=== PATIENT | female | born 1995 | race Hispanic/Latino ===

== ENCOUNTER 2021-05-28 10:08 | Inpatient (IN) | payer BC ==
[2021-06-01] MEDS ORDERED: Bupivacaine 0.25% HCL 30 ML VIAL ONE (08:00)
[2021-06-01 22:12] VITALS: BMI 32.0
[2021-06-01] MEDS ORDERED: Carboprost 250 MCG/ML AMP IM PRN (22:14)
[2021-06-01] MEDS ORDERED: Acetaminophen 500 MG TAB PO PRN (22:14)
[2021-06-01] MEDS ORDERED: hydrALAZINE 20 MG/ML VIAL SLOW IVP PRN (22:14)
[2021-06-01] MEDS ORDERED: HYDROcodone/Acetaminophen 5/325 mg Tablet PO PRN (22:14)
[2021-06-01] MEDS ORDERED: Ibuprofen 800 MG TAB PO PRN (22:14)
[2021-06-01] MEDS ORDERED: Ondansetron PF 4 MG/2 ML Vial IVP PRN (22:14)
[2021-06-01] MEDS ORDERED: Methylergonovine 0.2 MG/ML VIAL IM PRN (22:14)
[2021-06-01] MEDS ORDERED: Misoprostol 200 MCG TAB PR PRN (22:14)
[2021-06-01] MEDS ORDERED: Diphenoxylate HCl/Atropine Tablet PO PRN (22:14)
[2021-06-01] MEDS ORDERED: Butorphanol Tartrate 1 MG/ML VIAL SLOW IVP PRN (22:14)
[2021-06-01] MEDS ORDERED: Lidocaine 1% (PF) 30 ML VIAL SC PRN (22:14)
[2021-06-01] MEDS ORDERED: Promethazine HCl 25 MG/ML VIAL IM PRN (22:14)
[2021-06-01] MEDS ORDERED: NS w/ Oxytocin 30 units 500 ML IV SCH ×2 (22:14)
[2021-06-01 23:29] LABS: Hemoglobin 13.1 g/dL (12.0-15.5); Mean Corpuscular HGB CONC 33.3 g/dL (32.0-36.0); Mean Corpuscular Hemoglobin 28.1 pg (27.0-33.0); Mean Corpuscular Volume 84.2 fl (81.6-98.3); Mean Platelet Volume 10.3 fl (7.4-10.4); Platelet Count 370 10x3/uL (150-450); RBC Distribution Width 14.6 % (11.5-14.5); Red Blood Cell (RBC) Count 4.67 10x6/uL (3.90-5.03); White Blood Cell (WBC) Count 11.8 10x3/uL (3.5-10.5)
[2021-06-02 00:08] LABS: Hep B Surf Ag Non-Reactive S/CO (NonReactive)
[2021-06-02 00:09] LABS: Syphilis Antibody Nonreactive (Nonreactive); Syphilis Antibody Index 0.03 S/CO (<1.00 Non-Reactive)
[2021-06-02 00:13] LABS: HBSAg Index 0.15 S/CO (0-0.99)
[2021-06-02] MEDS: Misoprostol 100 MCG TAB VAG SCH ×2 (00:28→03:35)
[2021-06-02] MEDS: Lactated Ringer's 1,000 ML IV SCH ×2 (09:10→11:27)
[2021-06-02] MEDS ORDERED: Fentanyl 2 mcg/Bup 0.1% Cadd 100 ML ONE (09:15)
[2021-06-03] MEDS ORDERED: diphenhydrAMINE 25 MG CAP PO PRN (00:06)
[2021-06-03] MEDS ORDERED: Boostrix 0.5 ML (Tdap) VIAL IM ONE (00:06)
[2021-06-03] MEDS ORDERED: HYDROcodone/Acetaminophen 5/325 mg Tablet PO PRN ×2 (00:06)
[2021-06-03] MEDS ORDERED: Benzocaine-Menthol 82.5 ML CAN TOP PRN (00:06)
[2021-06-03] MEDS ORDERED: hydrALAZINE 20 MG/ML VIAL SLOW IVP PRN (00:06)
[2021-06-03] MEDS ORDERED: Milk Of Magnesia 30 ML UDCUP PO PRN (00:06)
[2021-06-03] MEDS ORDERED: Ondansetron PF 4 MG/2 ML Vial IVP PRN (00:06)
[2021-06-03] MEDS ORDERED: Lanolin Ointment 7 GM TUBE TOP PRN (00:06)
[2021-06-03] MEDS ORDERED: Preparation H Ointment 28 GM TUBE PR PRN (00:06)
[2021-06-03] MEDS ORDERED: Bisacodyl 10 MG SUPP PR PRN (00:06)
[2021-06-03] MEDS ORDERED: Docusate Calcium (SURFAK) 240 MG CAP PO SCH (01:00)
[2021-06-03] MEDS: Misoprostol 100 MCG TAB VAG SCH ×3 (01:20→01:29)
[2021-06-03] MEDS: Lactated Ringer's 1,000 ML IV SCH (01:30)
[2021-06-03] MEDS: Ibuprofen 800 MG TAB PO SCH ×4 (03:46→20:18)
[2021-06-03] MEDS: Prenatal Vitamin 1 TAB PO SCH (09:34)
[2021-06-03] MEDS: Docusate Calcium (SURFAK) 240 MG CAP PO SCH ×2 (09:34→20:18)
[2021-06-03] MEDS: Ferrous Sulfate 325 MG TAB PO SCH ×2 (11:23→17:02)
[2021-06-04] MEDS: Ibuprofen 800 MG TAB PO SCH ×2 (04:24→11:45)
[2021-06-04] MEDS: Ferrous Sulfate 325 MG TAB PO SCH (07:53)
[2021-06-04 08:04] VITALS: BP 122/83; TEMP 98.6
[2021-06-04] MEDS: Prenatal Vitamin 1 TAB PO SCH (08:29)
[2021-06-04] MEDS: Docusate Calcium (SURFAK) 240 MG CAP PO SCH (08:29)
== END 2021-06-04 13:40 | disposition home or self-care (01) | DRG 806 ==
LOC: CSHLD 06-01 21:33 → CSHPP 06-02 23:50
PROVIDERS: ADMIT Student in an Organized Health Care Education/Training Program; ATTEND Student in an Organized Health Care Education/Training Program
PROC: 10E0XZZ Delivery of Products of Conception, External Approach (ICD-10-PCS; principal; 2021-06-01)
PROC: 0KQM0ZZ Repair Perineum Muscle, Open Approach (ICD-10-PCS; 2021-06-01)
PROC: 3E033VJ Introduction of Other Hormone into Peripheral Vein, Percutaneous Approach (ICD-10-PCS; 2021-06-01)
PROC: 3E0P7VZ Introduction of Hormone into Female Reproductive, Via Natural or Artificial Opening (ICD-10-PCS; 2021-06-01)
DX: O48.0 Post-term pregnancy (principal); O36.0930 Maternal care for other rhesus isoimmunization, third trimester, not applicable or unspecified; Z37.0 Single live birth; Z3A.40 40 weeks gestation of pregnancy; Z88.1 Allergy status to other antibiotic agents; O70.1 Second degree perineal laceration during delivery; R33.9 Retention of urine, unspecified; O26.893 Other specified pregnancy related conditions, third trimester
CPT/HCPCS: 51702; 85027; 86780; 86850; 86900; 86901; 87340; J2405; J2590; S0020